=== PATIENT | male | born 1950 | race Two or more races ===

== ENCOUNTER 2017-08-02 15:36 | Inpatient (IN) | payer SELFPAY ==
[~2017-08-02] VITALS: Ht 165.1 cm; Wt 65.8 kg
[2017-08-02 15:46] VITALS: BP 114/57
[2017-08-02] MEDS ORDERED: LISINOPRIL5 MG ORAL (15:49)
[2017-08-02] MEDS ORDERED: FEROSUL325 M1 PO (15:49)
[2017-08-02] MEDS ORDERED: ACETAMINOPHEN325 M1 ORAL (15:49)
[2017-08-02] MEDS ORDERED: CARVEDILOL3.125 MG ORAL (15:49)
[2017-08-02] MEDS ORDERED: FUROSEMIDE20 M1 ORAL (15:49)
[2017-08-02] MEDS ORDERED: LIPITOR40 MG ORAL (15:49)
[2017-08-02] MEDS ORDERED: Aspirin Baby 81mg ORAL ONE (16:00)
--- NOTE | 2017-08-02 16:01 | Emergency Room Report ---
History of Present Illness General Chief Complaint: Dizziness Source: Patient Present Illness HPI Patient is a 67-year-old male who presented after increased vertigo sensation. Patient had gradual onset of symptoms. He reported having increased spinning of the head. He reported having recent hospitalization [facility]. He stated that they had noticed fluid in his lungs and had started him on diuretics. Patient was having some chest discomfort which he describes a tight sensation. He denies any vomiting.Patient denies any leg pain or swelling. Patient is taking Lasix as well as medications for cholesterol and blood pressure. Allergies: Coded Allergies: No Known Allergies (Unverified , 08/02/17) Patient History Past Medical History: see triage record Reviewed Nursing Documentation: PMH: Agreed, PSxH: Agreed Nursing Documentation-PMH Hx Hypertension: Yes Hx Diabetes: Yes Review of Systems All Other Systems: negative except mentioned in HPI Physical Exam Vital Signs Date Time Temp Pulse Resp B/P (MAP) Pulse Ox O2 Delivery O2 Flow Rate FiO2 08/02/17 15:36 98.1 86 16 140/80 98 Room Air 98.1 Sp02 EP Interpretation: reviewed, normal General Appearance: normal inspection, well appearing, no apparent distress, alert, GCS 15, non-toxic, thin, Chronically Ill Head: atraumatic ENT: normal ENT inspection, hearing grossly normal, normal voice Neck: normal inspection, full range of motion, supple, no bony tend Respiratory: normal inspection, lungs clear, normal breath sounds, no respiratory distress, no retraction, no wheezing Cardiovascular #1: regular rate, rhythm, no edema Gastrointestinal: normal inspection, normal bowel sounds, non tender, soft, no guarding, no hernia Genitourinary: no CVA tenderness Musculoskeletal: normal inspection, back normal, normal range of motion Neurologic: normal inspection, alert, oriented x3, responsive, edge grinder III-XII nml as tested, speech normal Psychiatric: normal inspection, judgement/insight normal, mood/affect normal Skin: normal inspection, normal color, no rash Medical Decision Making Diagnostic Impression: Primary Impression: Dizziness Additional Impressions: Anemia Abnormal EKG ER Course Patient presented for chest pain. Differential diagnosis included but was not limited to acute coronary syndrome, pulmonary embolism, pneumonia, aortic dissection, shingles, pneumothorax, aortic dissection, esophageal rupture, pericarditis. Because of complexity of patient's case laboratory testing and imaging studies were ordered.Patient did have evidence of anemia. EKG interpreted by me showed normal sinus rhythm with ST depression consistent with myocardial ischemia. Patient was given blood transfusion.Dr. Mian Rodríguez was contacted for inpatient management. Labs Test 08/02/17 16:15 08/02/17 16:25 White Blood Count 6.0 K/UL (4.8-10.8) Red Blood Count 3.52 M/UL (4.70-6.10) Hemoglobin 8.1 G/DL (14.2-18.0) Hematocrit 26.5 % (42.0-52.0) Mean Corpuscular Volume 75 FL (80-99) Mean Corpuscular Hemoglobin 23.1 PG (27.0-31.0) Mean Corpuscular Hemoglobin Concent 30.6 G/DL (32.0-36.0) Red Cell Distribution Width 18.9 % (11.6-14.8) Platelet Count 180 K/UL (150-450) Mean Platelet Volume 8.0 FL (6.5-10.1) Neutrophils (%) (Auto) 53.7 % (45.0-75.0) Lymphocytes (%) (Auto) 33.3 % (20.0-45.0) Monocytes (%) (Auto) 10.9 % (1.0-10.0) Eosinophils (%) (Auto) 1.0 % (0.0-3.0) Basophils (%) (Auto) 1.1 % (0.0-2.0) Prothrombin Time 10.1 SEC (9.30-11.50) Prothromb Time International Ratio 1.0 (0.9-1.1) Activated Partial Thromboplast Time 30 SEC (23-33) Sodium Level 132 MMOL/L (136-145) Potassium Level 4.9 MMOL/L (3.5-5.1) Chloride Level 99 MMOL/L (98-107) Carbon Dioxide Level 26 MMOL/L (21-32) Anion Gap 7 mmol/L (5-15) Blood Urea Nitrogen 16 mg/dL (7-18) Creatinine 0.8 MG/DL (0.55-1.30) Estimat Glomerular Filtration Rate > 60 mL/min (>60) Glucose Level 182 MG/DL (74-106) Calcium Level 8.7 MG/DL (8.5-10.1) Total Bilirubin 0.2 MG/DL (0.2-1.0) Aspartate Amino Transf (AST/SGOT) 24 U/L (15-37) Alanine Aminotransferase (ALT/SGPT) 25 U/L (12-78) Alkaline Phosphatase 121 U/L (46-116) Total Creatine Kinase 34 U/L (26-308) Creatine Kinase MB 0.9 NG/ML (0.0-3.6) Creatine Kinase MB Relative Index 2.6 Troponin I 0.019 ng/mL (0.000-0.056) Pro-B-Type Natriuretic Peptide 1503 pg/mL (0-125) Total Protein 6.6 G/DL (6.4-8.2) Albumin 2.7 G/DL (3.4-5.0) Globulin 3.9 g/dL Albumin/Globulin Ratio 0.7 (1.0-2.7) Lipase 231 U/L (73-393) Serum Alcohol < 3 mg/dL Urine Color Pale yellow Urine Appearance Clear Urine pH 5 (4.5-8.0) Urine Specific [place] 1.015 (1.005-1.035) Urine Protein Negative (NEGATIVE) Urine Glucose (UA) Negative (NEGATIVE) Urine Ketones Negative (NEGATIVE) Urine Occult Blood 1+ (NEGATIVE) Urine Nitrite Negative (NEGATIVE) Urine Bilirubin Negative (NEGATIVE) Urine Urobilinogen Normal MG/DL (0.0-1.0) Urine Leukocyte Esterase Negative (NEGATIVE) Urine RBC 0-2 /HPF (0 - 0) Urine WBC 0-2 /HPF (0 - 0) Urine Squamous Epithelial Cells None /LPF (NONE/OCC) Urine Bacteria Few /HPF (NONE) Urine Opiates Screen Negative (NEGATIVE) Urine Barbiturates Screen Negative (NEGATIVE) Phencyclidine (PCP) Screen Negative (NEGATIVE) Urine Amphetamines Screen Negative (NEGATIVE) Urine Benzodiazepines Screen Negative (NEGATIVE) Urine Cocaine Screen Negative (NEGATIVE) Urine Marijuana (THC) Screen Negative (NEGATIVE) Last Vital Signs Date Time Temp Pulse Resp B/P (MAP) Pulse Ox O2 Delivery O2 Flow Rate FiO2 08/02/17 15:46 98.1 81 25 114/57 97 Room Air 98.1 Status: unchanged Disposition: ADMITTED INPATIENT Condition: Serious Stanislaw Alarcon Aug 02, 2017 16:01
[2017-08-02 16:30] LABS: BASOPHILS % (AUTO) 1.1 % (0.0-2.0); HEMATOCRIT 26.5 % (42.0-52.0); HEMOGLOBIN 8.1 G/DL (14.2-18.0); LYMPHOCYTES % (AUTO) 33.3 % (20.0-45.0); MEAN CORPUSCULAR VOLUME 75 FL (80-99); MONOCYTES % (AUTO) 10.9 % (1.0-10.0); NEUTROPHILS % (AUTO) 53.7 % (45.0-75.0); PLATELET COUNT 180 K/UL (150-450); RED BLOOD COUNT 3.52 M/UL (4.70-6.10); RED CELL DISTRIBUTION WIDTH 18.9 % (11.6-14.8)
[2017-08-02 16:59] LABS: ANION GAP 7 mmol/L (5-15); BLOOD UREA NITROGEN 16 mg/dL (7-18); CALCIUM 8.7 MG/DL (8.5-10.1); CARBON DIOXIDE 26 MMOL/L (21-32); CHLORIDE 99 MMOL/L (98-107); CREATININE 0.8 MG/DL (0.55-1.30); POTASSIUM 4.9 MMOL/L (3.5-5.1); SODIUM 132 MMOL/L (136-145)
[2017-08-02 17:00] LABS: APPEARANCE,URINE CLEAR; BILIRUBIN, URINE NEGATIVE (NEGATIVE); COLOR,URINE PALE YELLOW; GLUCOSE, URINE (UA) NEGATIVE (NEGATIVE); KETONES,URINE NEGATIVE (NEGATIVE); LEUKOCYTE ESTERASE ,URINE NEGATIVE (NEGATIVE); NITRITE,URINE NEGATIVE (NEGATIVE); PH,URINE 5 (4.5-8.0); PROTEIN,URINE NEGATIVE (NEGATIVE); UROBILINOGEN,URINE NORMAL MG/DL (0.0-1.0)
[2017-08-02 17:18] LABS: ALANINE AMINOTRANSFERASE 25 U/L (12-78); ALBUMIN 2.7 G/DL (3.4-5.0); ALBUMIN/GLOBULIN RATIO 0.7 (1.0-2.7); ALKALINE PHOSPHATASE 121 U/L (46-116); ASPARTATE AMINO TRANSFERASE 24 U/L (15-37); BILIRUBIN,TOTAL 0.2 MG/DL (0.2-1.0); CKMB 0.9 NG/ML (0.0-3.6); CREATINE KINASE 34 U/L (26-308)
[2017-08-02 17:40] VITALS: BP 99/48
[2017-08-02] MEDS ORDERED: TRIAMCINOLONE A15 GM TP (18:15)
[2017-08-02 19:00] VITALS: BP 107/48
[2017-08-02 21:00] VITALS: BP 104/46
[2017-08-02 22:00] VITALS: BP 104/42
[2017-08-03] VITALS: BP 101/41
[2017-08-03 04:00] VITALS: BP 107/51
[2017-08-03 08:00] VITALS: BP 110/58
[2017-08-03] MEDS ORDERED: Zolpidem 5mg tab ORAL PRN (08:00)
[2017-08-03] MEDS ORDERED: Milk of Magnesia 30ml Ud ORAL PRN (08:00)
[2017-08-03] MEDS ORDERED: Triamcinolone 0.1% 15gm Cr TOPIC SCH (09:00)
[2017-08-03] MEDS: Lisinopril 2.5mg tab ORAL SCH (09:01)
[2017-08-03 09:29] LABS: BASOPHILS % (AUTO) 0.9 % (0.0-2.0); EOSINOPHILS % (AUTO) 1.3 % (0.0-3.0); HEMATOCRIT 35.2 % (42.0-52.0); HEMOGLOBIN 11.1 G/DL (14.2-18.0); MEAN CORPUSCULAR VOLUME 80 FL (80-99); MONOCYTES % (AUTO) 10.8 % (1.0-10.0); PLATELET COUNT 180 K/UL (150-450); RED BLOOD COUNT 4.41 M/UL (4.70-6.10); RED CELL DISTRIBUTION WIDTH 19.8 % (11.6-14.8)
[2017-08-03 10:02] LABS: IRON 187 ug/dL (50-175); TOTAL IRON BINDING CAPACITY 331 ug/dL (250-450)
[2017-08-03 10:07] LABS: ALANINE AMINOTRANSFERASE 24 U/L (12-78); ALBUMIN 2.8 G/DL (3.4-5.0); ALBUMIN/GLOBULIN RATIO 0.7 (1.0-2.7); ALKALINE PHOSPHATASE 122 U/L (46-116); ANION GAP 3 mmol/L (5-15); ASPARTATE AMINO TRANSFERASE 20 U/L (15-37); BILIRUBIN,TOTAL 0.5 MG/DL (0.2-1.0); BLOOD UREA NITROGEN 12 mg/dL (7-18); CARBON DIOXIDE 32 MMOL/L (21-32); CHLORIDE 101 MMOL/L (98-107); CHOLESTEROL 118 MG/DL (< 200); CREATININE 0.8 MG/DL (0.55-1.30); HDL CHOLESTEROL 31 MG/DL (40-60); POTASSIUM 4.7 MMOL/L (3.5-5.1); SODIUM 136 MMOL/L (136-145); TRIGLYCERIDES 141 MG/DL (30-150)
[2017-08-03 10:11] LABS: % IRON SATURATION 56 % (15-50)
--- NOTE | 2017-08-03 10:29 | Diagnostic Imaging Report ---
Indication: Shortness of breath Technique: XRAY Chest 1v Comparison: None Findings: Cardiac silhouette is borderline prominent. Atherosclerotic changes are seen. There is no consolidation or pleural effusion. Calcified granuloma the right lung is noted. Degenerative changes of the spine are seen. Impression: No acute cardiopulmonary disease.
[2017-08-03 12:00] VITALS: BP 113/61
[2017-08-03] MEDS: Triamcinolone 0.1% 15gm Cr TOPIC SCH (12:29)
[2017-08-03 16:00] VITALS: BP 116/56
--- NOTE | 2017-08-03 16:09 | Cardiology Report ---
APPROVED REPORT EKG Measurement Heart [id number] Normal sinus rhythm Nonspecific ST and T wave abnormality Abnormal ECG
[2017-08-03 20:00] VITALS: BP 112/57
--- NOTE | 2017-08-03 20:00 | History and Physical Report ---
DATE OF ADMISSION: 08/02/2017 REASON FOR ADMISSION: Possible acute coronary syndrome. HISTORY OF PRESENT ILLNESS: A 67-year-old male presents with vertiginous symptoms. The patient notes head to be spinning. Recent hospitalization at [facility]. Apparently, they took fluid out of his lungs. The patient has noted some chest discomfort, now being admitted. The patient currently takes Lasix at home. PAST MEDICAL HISTORY: Unclear. Underlying hypertension and diabetes noted. Possible pulmonary edema. Possible pleural effusion. SOCIAL HISTORY: Reviewed. REVIEW OF SYSTEMS: Otherwise negative. PHYSICAL EXAMINATION: GENERAL: A well-developed male, otherwise fairly comfortable. VITAL SIGNS: Reviewed in detail. The patient is off of oxygen. LUNGS: Reduced breath sounds. CARDIAC: S1 and S2. Regular rhythm. ABDOMEN: Soft and nontender. EXTREMITIES: No cyanosis, clubbing, or edema. IMPRESSION: 1. Abnormal EKG, possible acute coronary syndrome, possible pulmonary edema, although unclear. 2. Dizziness, possible vertigo. RECOMMENDATIONS: Cardiology evaluation. Serial troponins. Obtain echocardiogram. Monitor hemoglobin and hematocrit. Monitor need for transfusion and discharge planning once stable and cleared by Cardiology. Mian Rodríguez M.D. DR: Taryn JOB#: [id number] CC:
[2017-08-03] MEDS ORDERED: Atorvastatin 20mg tab ORAL SCH (21:00)
[2017-08-04] VITALS: BP 103/53
[2017-08-04 04:00] VITALS: BP 96/56
--- NOTE | 2017-08-04 04:00 | Consultation ---
DATE OF CONSULTATION: 08/03/2017 CARDIOLOGY CONSULTATION CONSULTING PHYSICIAN: Octavio Cerda M.D. REQUESTING PHYSICIAN: Mian Rodríguez M.D. REASON FOR CONSULTATION: Chest pain and shortness of breath. HISTORY OF PRESENT ILLNESS: This 67-year-old male was recently hospitalized with congestive heart failure at [facility]. He states that fluid was taken out of his "lungs." He returned home. He has been taking diuretics since that discharge. Today he developed worsening shortness of breath and some chest pain. PAST MEDICAL HISTORY: Type 2 diabetes, hypertension, congestive heart failure. MEDICATIONS: Reviewed and reconciled. ALLERGIES: None known. SOCIAL HISTORY: Nonsmoker. No alcohol abuse. REVIEW OF SYSTEMS: Unremarkable. PHYSICAL EXAMINATION: NECK: Supple. LUNGS: With few rales. CARDIAC: Regular rhythm and rate. Normal S1 and S2 with a fourth heart sound. ABDOMEN: Soft. EXTREMITIES: No edema. DIAGNOSTIC DATA: EKG, sinus rhythm, nonspecific ST-T wave changes. Troponin 0.019. Natriuretic peptide 1500. Hemoglobin 8.1. IMPRESSION: 1. Anemia. 2. Acute coronary syndrome. 3. Acute on chronic congestive heart failure, likely diastolic. 4. Severe anemia. PLAN: 1. Transfusion of packed red blood cells was ordered by the primary care physician. 2. Antiplatelet therapy will be held at this time due to possible GI blood loss. 3. Maintenance diuretic therapy. 4. Echocardiogram. 5. Serial troponin levels. 6. Stool occult blood test. Octavio Cerda M.D. DR: JANA/dre JOB#: [id number] CC:
[2017-08-04 08:00] VITALS: BP 83/54
[2017-08-04] MEDS: Lisinopril 2.5mg tab ORAL SCH (08:48)
[2017-08-04] MEDS: Triamcinolone 0.1% 15gm Cr TOPIC SCH (08:51)
[2017-08-04] MEDS ORDERED: Lisinopril 2.5mg tab ORAL SCH (09:30)
--- NOTE | 2017-08-04 09:56 | Cardiology Report ---
APPROVED REPORT EXAM: Two-dimensional and M-mode echocardiogram with Doppler and color Doppler. INDICATION Congestive Heart Failure M-Mode DIMENSIONS IVSd0.8 (0.7-1.1cm)Left Atrium (MM)4.6 (1.6-4.0cm) LVDd5.5 (3.5-5.6cm)Aortic Root3.5 (2.0-3.7cm) PWd1.6 (0.7-1.1cm)Aortic Cusp Exc.1.5 (1.5-2.0cm) LVDs4.5 (2.5-4.0cm) PWs1.3 cm Technically difficult study due to poor acoustical windows. Normal left ventricular chamber size, systolic function and wall motion. Left ventricular ejection fraction estimated to be 55-60%. No evidence of left ventricular hypertrophy. No evidence of pericardial or pleural effusion. Right cardiac chamber sizes are within normal limits. Mild left atrial enlargement by 2D. Focal aortic valve sclerosis with adequate cusp excursion. Normal mitral valve leaflets with normal excursion. Mild mitral annulus and aortic root calcification. Pulmonic valve not well visualized. Normal tricuspid valve structure. IVC is normal in size and collapsible with respiration. A color flow and spectral Doppler study was performed and revealed: Trace aortic regurgitation. No mitral regurgitation. Mitral diastolic velocities suggest reduced left ventricular relaxation c/w diastolic dysfunction grade 1. No tricuspid regurgitation.
[2017-08-04] MEDS ORDERED: Sodium Chloride 500ML 500 ML IV ONE (10:00)
--- NOTE | 2017-08-04 11:27 | General Progress Note ---
Assessment/Plan Assessment/Plan give small NS bolus reduced bp meds dc lasix monitor clinically if stable, dc today off lasix no further work up recommended by cards Subjective Allergies: Coded Allergies: No Known Allergies (Unverified , 08/02/17) Subjective bp has been low on cardiac meds cleared by cardiology Objective Last 24 Hour Vital Signs Date Time Temp Pulse Resp B/P (MAP) Pulse Ox O2 Delivery O2 Flow Rate FiO2 08/04/17 08:00 82 08/04/17 08:00 96.4 79 18 83/54 96 Room Air 96.4 08/04/17 04:00 97.6 84 20 96/56 94 Room Air 97.6 08/04/17 04:00 80 08/04/17 00:00 83 08/04/17 00:00 97.0 72 20 103/53 97 Room Air 97.0 08/03/17 20:24 80 112/57 08/03/17 20:00 98.1 83 20 112/57 95 Room Air 98.1 08/03/17 20:00 82 08/03/17 18:26 97.9 08/03/17 17:27 97.9 08/03/17 16:00 74 08/03/17 16:00 97.9 83 18 116/56 95 Room Air 97.9 08/03/17 13:12 98.2 08/03/17 12:00 98.2 74 18 113/61 97 Room Air 98.2 08/03/17 12:00 76 Intake and Output 08/03/17 08/04/17 19:00 07:00 Intake Total 360 ml Balance 360 ml Intake Oral 360 ml # Voids 2 4 Laboratory Tests 08/03/17 16:10: Troponin I 0.011 08/04/17 00:00: Troponin I 0.013 Height (Feet): 5 Height (Inches): 5.00 Weight (Pounds): 145 Objective WDWN NAD clear breath sounds bilaterally without rhonchi or wheeze [id number] without MRG NABS nontender no HSM no CCE nonfocal DONNA AMOS Aug 04, 2017 11:27
[2017-08-04 12:00] VITALS: BP 114/50
[2017-08-04] MEDS ORDERED: ZESTRIL2.5 MG ORAL (15:05)
--- NOTE | 2017-08-04 18:15 | Consultation ---
DATE OF CONSULTATION: 08/03/2017 NOTE: INCOMPLETE DICTATION CARDIOLOGY CONSULTATION CONSULTING PHYSICIAN: Octavio Cerda M.D. REQUESTING PHYSICIAN: Mian Rodríguez M.D. REASON FOR CONSULTATION: Congestive heart failure and chest pain. HISTORY OF PRESENT ILLNESS: This 67-year-old male presented to the hospital with sensation of his head spinning. He did not fall or lose consciousness. He was recently hospitalized at [facility] and there he had fluid removed from his "lungs." He has had some chest discomfort over the last day or two and he has a recent . Octavio Cerda M.D. DR: JANA/dre JOB#: [id number] CC:
--- NOTE | 2017-08-07 10:37 | Discharge Summary ---
Discharge Summary Hospital Course Date of Admission Aug 02, 2017 at 18:39 Date of Discharge Aug 04, 2017 at 18:45 Admitting Diagnosis CHEST PAIN ACS HPI Carmelo Atkinson is a 67 year old male who was admitted on Aug 02, 2017 at 18:39 for Chest Pain,Acute Coronary Syndrome Hospital Course dc summary #[id number] Discharge Medications Continued Medications: Acetaminophen* (Acetaminophen 325MG Tablet*) 325 Mg Tablet 650 MG ORAL Q6H PRN for Pain Scale (3-5) MDD 3GM, TAB Atorvastatin Calcium* (Lipitor*) 40 Mg Tablet 40 MG ORAL BEDTIME, #30 TAB 0 Refills Carvedilol* (Carvedilol*) 3.125 Mg Tablet 3.125 MG ORAL EVERY 12 HOURS, TAB Ferrous Sulfate (Ferosul) 325 Mg Tablet 325 MG PO BID, TAB Lisinopril* (Zestril*) 2.5 Mg Tablet 2.5 MG ORAL DAILY, TAB Triamcinolone Acetonide (Triamcinolone Acetonide) 15 Gm Cream..g. 15 GM TP DAILY, GM Discharge Condition Upon Discharge: stable Discharge Disposition Patient was discharged to Home () Discharge Diagnoses: Discharge Instructions Discharge Instructions Special Instructions I have been assigned to complete a D/C Summary on this account. I was not involved in the patient management Lydia Butts NP (Vanchtein) Aug 07, 2017 10:37
--- NOTE | 2017-08-07 21:36 | Cardiology Report ---
APPROVED REPORT EKG Measurement Heart [id number] Normal sinus rhythm Possible Inferior infarct, age undetermined Abnormal ECG
--- NOTE | 2017-08-08 01:15 | Discharge Summary 2 SIG ---
DATE OF ADMISSION: 08/02/2017 DATE OF DISCHARGE: 08/04/2017 REASON FOR ADMISSION: 67-year-old male with history of hypertension and hyperlipidemia, presented to emergency department with dizziness and vertigo-like symptoms. He reported spinning of the head. The patient was recently hospitalized at the [facility]. According to the patient, they found fluid in his lung. The patient was started on diuretic. The patient came for evaluation, he also reported chest discomfort, which he described as a tight sensation. No vomiting. No leg swelling. The patient was taking Lasix as well as the blood pressure medication and medication for high cholesterol. Upon evaluation in the emergency department, vital signs were stable. Pulse oximetry was stable on room air. Noted severe anemia, hemoglobin- 8.1 and hematocrit -26.5. Troponin was negative. Electrolytes stable. Pro BNP -1503. Urinalysis with no evidence of infection. Urine toxicology screen negative. EKG revealed sinus rhythm with nonspecific ST abnormality. The patient was admitted with a diagnoses of chest pain, possible acute coronary syndrome, abnormal EKG, anemia, and dizziness, possible vertigo. HOSPITAL STAY: The patient was admitted to telemetry floor. Cardiology consult requested. Serial troponin x4 were negative. EKG revealed no acute ischemic changes. The patient was ruled out for acute myocardial infarction. Per dyer helper patient had acute on chronic congestive heart failure exacerbation, likely diastolic. Echocardiogram revealed preserved ejection fraction of 55% to 60%. The patient was given one dose of aspirin in the emergency department, but further antiplatelet therapy was on hold at that time due to anemia. Lipid panel was stable. Statin was continued. The patient was on diuretic. Volumes and cardiorenal parameters were closely monitored. The patient was transfused with two units of packed red blood cells. After transfusion, hemoglobin -11.1 and hematocrit-35.2. Anemia workup revealed stable iron. No overt signs of bleeding. Stool OB was not collected since the patient had no stool. On 08/04/2017, the patient was noted to be hypotensive. Bolus of normal saline provided. Blood pressure improved. Dizziness resolved, possibly was related to Lasix use. Due to the hypotension, antihypertensive medication regimen optimized with dose decrease. Lasix stopped. Per cardio, monitor patient clinically, no further workup was recommended by dyer helper. Blood pressure prior to discharge -115/50. The patient was stable for discharge home. FINAL DIAGNOSES: 1. Chest pain 2. Acute on chronic diastolic heart failure exacerbation 3. Anemia , status post blood transfusion. 4. Dizziness ( possibly due to Lasix) 5. Possible vertigo. DISCHARGE INSTRUCTIONS: The patient was discharged home. Follow up with the primary care provider next week for blood pressure check and farther workup for anemia. Mian Rodríguez M.D. I have been assigned to dictate discharge summary on this account and I was not involved in the patient's management. Lydia Butts (Vanchtein) N.PMaldonado DR: ISELA JOB#: [id number] CC: [email or web address]
== END 2017-08-04 18:45 | disposition home or self-care (01) | DRG 311 ==
LOC: EDBD 15:36 → EMR 16:10 → 2E 18:39 → EDBEDREQ 20:26
PROC: 30233N1 Transfusion of Nonautologous Red Blood Cells into Peripheral Vein, Percutaneous Approach (ICD-10-PCS; principal; 2017-08-02)
DX: I24.9 Acute ischemic heart disease, unspecified (principal); I50.33 Acute on chronic diastolic (congestive) heart failure; I95.9 Hypotension, unspecified; I11.0 Hypertensive heart disease with heart failure; D64.9 Anemia, unspecified; E11.9 Type 2 diabetes mellitus without complications; E78.5 Hyperlipidemia, unspecified; R42 Dizziness and giddiness; R94.31 Abnormal electrocardiogram [ECG] [EKG]
CPT/HCPCS: 36415; 71045; 80053; 80061; 80307; 80329; 81003; 82550; 82553; 83540; 83550; 83690; 83880; 84443; 84484; 85025; 85610; 85730; 86850; 86900; 86901; 86920; 87081; 93005; 93306; 99285